=== PATIENT | male | born 1970 | race Caucasian/White ===

== ENCOUNTER 2020-11-10 18:17 | Emergency (ER) | payer SELFPAY ==
[2020-11-10 18:19] VITALS: BP 113/67; PULSE 97; RESP 17; TEMP 36.3; O2SAT 98; BMI 22.4
--- NOTE | 2020-11-10 18:33 | RAD_ITS ---
HISTORY: pain EXAMINATION/TECHNIQUE: XR Shoulder Min 2 Views: COMPARISON: None FINDINGS: BONES/JOINTS: No acute fracture or dislocation. Preservation of the joint spaces. No sclerotic or destructive changes observed. SOFT TISSUES: No soft tissue swelling or gas. No radiopaque foreign body. RAD/Shoulder min 2 Views IMPRESSION: No acute bony abnormality. at 1858 Reported and signed by: Gwyn Schumacher MD Electronically Signed: Gwyn Schumacher MD at 18:57 EDT Tel , Service support ,
--- NOTE | 2020-11-10 19:59 | EX.ED.UPPERE ---
HPI History of Present Illness Chief Complaint: Upper Extremity Injury Narrative Narrative: Patient presenting with pain in his right axilla. He states that a couple of weeks ago he was reorganizing his garage and felt a pop in the right axilla. Patient states that he has intermittent pain and sometimes is just mild aching and other times it is cramping and spasming and he feels like it is in his triceps. He denies any direct trauma. He at times does have some numbness and tingling down his arm and other times he has none. He states he has been taking Naprosyn at home with some relief at times and other times does not think much at all. Patient does not have a primary care provider. He has not seen anybody else prior to this visit today. PFSH PFSH Home Medications naproxen [Naprosyn] 500 mg PO BID PRN #30 tab 11/10/20 [Rx Last Taken Unknown] tizanidine [Zanaflex] 4 mg PO Q8H PRN #20 cap 11/10/20 [Rx Last Taken Unknown] Allergy/AdvReac Type Severity Reaction Status Date / Time No Known Allergies Allergy Verified 11/10/20 18:18 Social History Smoking Status: Current every day smoker tobacco type: cigarettes ROS ROS ED Constitutional Constitutional ED: Denies chills, frequent falls or sweats Eyes Eyes: Denies blurry vision or diplopia ENT ENT ED: Denies rhinorrhea or sore throat Cardiovascular Cardiovascular: Denies chest pain or palpitations Respiratory/Chest Respiratory/Chest: Denies cough or dyspnea Gastrointestinal Gastrointestinal: Denies abdominal pain, nausea or vomiting Genitourinary Genitourinary ED: Denies dysuria or hematuria Musculoskeletal Musculoskeletal: Reports other Details: Right axillary pain Integumentary Denies Abrasions or rash Neurologic Neurologic: Reports paresthesias LUE; Denies headache(s) EXAM Physical Exam Const Vital Signs: 11/10/20 18:19 Temperature 97.4 F L Temperature Source Temporal Pulse Rate 97 Respiratory Rate 17 Blood Pressure 113/67 Blood Pressure Mean 82 Pulse Ox 98 Oxygen Delivery Method Room Air Positive well nourished General Appearance ED: NAD HEENT normocephalic and atraumatic Eyes EOMs intact bilaterally Resp normal respiratory effort and clear to auscultation bilaterally Cardio regular rate and regular rhythm Back/Spine Cervical Spine: Negative for cervical spine tenderness Extremity Extremity Narrative: Tenderness to palpation of the right axilla. There are no masses palpated. No abscesses. No bony deformity of the right shoulder. Patient has full range of motion of the right shoulder as well. Right radial pulses 2+. Right hand neurovascular intact with brisk cap refill to all 5 fingers. Neuro oriented x3, CN's II-XII intact bilaterally, moves all extremities, no focal motor deficits and no sensory deficits noted Sensorium / Orientation: oriented to person Psych mental status grossly normal Skin Lesions: no lesions Rashes: no rashes MDM MDM MDM Narrative Medical decision making narrative: Patient presenting with right axillary pain. He states currently his pain is manageable but at other times it feels like it spasming in the axilla. I did not find anything on exam other than pain in the right axilla. There are no masses, abscesses, signs of infection, bony deformities. Patient is moving his right shoulder freely and has no limitations. I did obtain an x-ray of the right shoulder which on my interpretation shows no acute bony abnormalities. The radiologist does agree. Patient states that since his pain now feels like a spasm he thinks he would benefit from muscle relaxers. He is given cyclobenzaprine prior to discharge. He is given a prescription for Zanaflex and Naprosyn. Patient given follow-up with orthopedics. Patient stable discharge at this time. Impression: 1 shoulder strain 2. Radiculopathy Radiography Diagnostic Testing: Radiology Impression Shoulder X-Ray 11/10/20 18:33 IMPRESSION: No acute bony abnormality. at 1858 Reported and signed by: Gwyn Schumacehr MD Electronically Signed: Gwyn Schumacher MD at 18:57 EDT Tel , Service support , Discharge Plan Triage Chief Complaint: Upper Extremity Injury ED Provider: Charles Pozo Dx/Rx/DC Orders Instructions: ED Shoulder Sprain Prescriptions: New tizanidine [Zanaflex] 4 mg capsule 4 mg PO Q8H PRN (Reason: muscle spasticity) Qty: 20 RF: 0 naproxen [Naprosyn] 500 mg tablet 500 mg PO BID PRN (Reason: pain) Qty: 30 RF: 0 Primary Care Provider: Care Physician,No Primary Referrals: Thien Mabry MD [STAFF PHYSICIAN] - As Needed Care Physician,No Primary [Primary Care Provider] - Disposition Disposition: Home, Self Care Discharge Date/Time: 11/10/20 20:11
[2020-11-10] MEDS: cycloBENZAPRine HCl 10 MG Tablet PO (20:09)
== END 2020-11-10 20:11 | disposition home or self-care (01) ==
PROVIDERS: Emergency Provider Student in an Organized Health Care Education/Training Program
DX: S46.811A Strain of other muscles, fascia and tendons at shoulder and upper arm level, right arm, initial encounter (principal); M54.10 Radiculopathy, site unspecified; F17.210 Nicotine dependence, cigarettes, uncomplicated; X58.XXXA Exposure to other specified factors, initial encounter; Y93.E9 Activity, other interior property and clothing maintenance; Y92.008 Other place in unspecified non-institutional (private) residence as the place of occurrence of the external cause; Y99.8 Other external cause status
CPT/HCPCS: 73030; 99283